=== PATIENT | female | born 1980 | race Caucasian/White ===

== ENCOUNTER 2020-05-21 20:13 | Emergency (ER) | payer OTHER, MEDICAID, SELFPAY ==
[2020-05-21 20:17] VITALS: BP 153/84; PULSE 93; RESP 18; TEMP 36.3; O2SAT 99
[2020-05-21] MEDS: DOXYCYCLINE HYCLATE 100 MG TABLET PO (20:22)
[2020-05-21] MEDS: LIDO 1%/SOD BICARB 8.4% (10ML) 10 ML SYRINGE INJ (20:23)
[2020-05-21] MEDS: TET,DIPH,PERTUSS(ACELL),VAC/PF 0.5 ML SYRINGE IM (20:31)
[2020-05-21] MEDS: HYDROCODONE/ACET 5/325 PREPACK 1 BOTTLE MISC (21:26)
--- NOTE | 2020-05-21 23:40 | ED_ITS ---
HPI - Skin/Abscess/Foreign Bdy General Chief complaint: Skin/Abscess/Foreign Body Stated complaint: states infection middle finger right hand Time Seen by Provider: 05/21/20 20:15 Source: patient Mode of arrival: Ambulatory Limitations: no limitations History of Present Illness HPI narrative: 39F former smoker with history of diabetes presents with the chief complaint of worsening pain, swelling, and redness of her right middle finger and she is concerned about infection. She denies any injury or systemic symptoms such as fever, chills, N/V. She states she got some redness over a week ago and pain seemed to get worse today. She did get some pus out earlier today. She denies any history of the same. MD complaint: abscess/boil Onset (ago): day(s) Tetanus up to date: yes Location: R hand Severity: moderate Quality: aching and constant Pain Consistency: constant Relieving factors: none Exacerbating factors: palpation and movement Context: none Treatments prior to arrival: bandages and attempted to drain pus at home Related Data Previous Rx's Medication Instructions Recorded doxycycline hyclate 100 mg PO BID #20 tab 05/21/20 Allergies Allergy/AdvReac Type Severity Reaction Status Date / Time No Known Drug Allergies Allergy Verified 05/21/20 20:19 Review of Systems Constitutional Constitutional: Denies chills, Denies fatigue, Denies fever(s), Denies frequent falls, Denies lethargy and Denies weakness Eyes Eyes: Denies change in vision, Denies eye discharge, Denies irritation and Denies loss of vision ENT Ears, Nose, Mouth, and Throat: Denies change in voice, Denies dizziness, Denies neck pain, Denies sore throat and Denies throat swelling Cardiovascular Cardiovascular: Denies chest pain, Denies irregular heart rhythm, Denies lightheadedness, Denies palpitations, Denies dyspnea, Denies dyspnea on exertion and Denies orthopnea Respiratory Respiratory: Denies cough, Denies dyspnea, Denies dyspnea on exertion and Denies wheezing Gastrointestinal Gastrointestinal: Denies abdominal pain, Denies change in bowel habits, Denies diarrhea, Denies nausea and Denies vomiting Musculoskeletal Musculoskeletal: Denies neck pain and Denies numbness Integumentary/Breasts Skin/Breast: Denies pruritus, Reports erythema, Denies rash, Reports skin pain, Reports skin swelling and Denies wounds Neurologic Neurologic: Denies behavioral changes, Denies confusion, Denies dizziness, Denies frequent falls, Denies loss of vision, Denies numbness and Denies weaknes s Psychiatric Psychiatric: Denies anxiety, Denies behavioral changes, Denies confusion, Denies depression, Denies homicidal ideation and Denies suicidal ideation Endocrine Endocrine: Denies fatigue, Denies flushing and Denies palpitations Hematologic/Lymphatic Hematologic/Lymphatic: Denies easy bruising Allergic/Immunologic Allergic/Immunologic: Denies urticaria, Denies throat swelling and Denies wheezing Patient History Social History Smoking Status: Current some day smoker Smoking Status: Current some day smoker Exam Narrative Exam Narrative: GEN: AOx3 and in mild distress EYES: Pupils are equal, round, and reactive to light and accommodation. Extraoccular muscles are intact bilaterally. There is no subconjunctival hemorrhage or exudate. CHEST: Lungs are clear to auscultation bilaterally and free of wheezes, rales, or rhonchi. Heart rate is regular rhythm, there are no murmurs, clicks, rubs, or gallops. There is no chest wall tenderness. ABD: Abdomen is soft and nontender. There is no guarding or rebound. Bowel sounds are normal in all 4 quadrants. There is no mass or organomegaly. EXT: Right middle finger with distal swelling and erythema and tenderness with fluctuance and lateral nail fold consistent with paronychia. There is some swelling of finger pad but it is soft and there is no fluctuance to suggest felon. No fusiform swelling, pain along flexor tendon or other findings consistent with tenosynovitis. Full painless ROM of all extremities with no loss of sensation or strength. SKIN: Warm, pink, and dry. No erythema or rash Initial Vital Signs Initial Vital Signs: Vital Signs Temperature 97.4 F L 05/21/20 20:17 Pulse Rate 93 H 05/21/20 20:17 Respiratory Rate 18 05/21/20 20:17 Blood Pressure 153/84 H 05/21/20 20:17 Pulse Oximetry 99 05/21/20 20:17 Procedures Abscess I/D I&D #1: Site: hand Side (if applicable): right Technique: incised with #11 blade Amount of fluid expressed (mL): 3 Irrigation: No Packing used?: none Complications: pain Nerve Block Nerve Block 1: Time out performed: Yes Local Anesthetic: lidocaine 1% Amount of anesthesia used (mL): 4 Side: right Nerve Blocks: digital Procedure Successful: Yes Patient Tolerated Procedure: Well Complications: none Course Orders Ordered: Discontinued Medications Hydrocodone Bitart/Acetaminophen (Hydrocodone/Acet 5/325 Prepack) 1 bottle MISC SEEINSTR ONE Stop: 05/21/20 21:24 Last Admin: 05/21/20 21:26 Dose: 1 bottle Documented by: BRENNA Diphtheria/Tetanus/Acell Pertussis (Tet,Diph,Pertuss(Acell),Vac/Pf 0.5 Ml Syringe) 0.5 ml IM .ONCE ONE Stop: 05/21/20 20:27 Last Admin: 05/21/20 20:31 Dose: 0.5 ml Documented by: BRENNA Doxycycline Hyclate (Doxycycline Hyclate 100 Mg Tablet) 100 mg PO NOW ONE Stop: 05/21/20 20:21 Last Admin: 05/21/20 20:22 Dose: 100 mg Documented by: MADDISON Lidocaine/Sodium Bicarbonate (Lido 1%/Sod Bicarb 8.4% (10ml) 10 Ml Syringe) 10 ml INJ NOW ONE Stop: 05/21/20 20:20 Last Admin: 05/21/20 20:23 Dose: 10 ml Documented by: MADDISON Vital Signs Vital signs: Vital Signs - 8 hr 05/21/20 20:17 Temperature 97.4 F L Pulse Rate 93 H Respiratory Rate 18 Blood Pressure 153/84 H Pulse Oximetry 99 MDM - Skin/Abscess/Foreign Bdy MDM Narrative Medical decision making narrative: Painful swollen, red finger with drainage. Swelling and fluctuance is limited to dorsal aspect of finger at nail fold. Felon and tenosynovitis considered but thought unlikely given exam. Extensive return precautions discussed with the patient, she demonstrates her understanding by her ability to verbalize them back. Questions answered to her apparent satisfaction. Discharge Plan Departure Patient Disposition: Home Clinical Impression: Paronychia Instructions: DI for Paronychia Activity Restrictions/Additional Instructions: *You have been diagnosed with [left middle finger paronychia with minimal surrounding cellulitis] *What to do: *Take medications as directed *Follow up with your primary care provider in 2-3 days, call for an appointment. Let them know you were seen in the Emergency Department and that we ask that you be seen in follow up *Return to ER if you should have any new, worsening or concerning symptoms, such as [increasing pain, fever, shaking chills, vomiting or other bothersome symptoms] Prescriptions: New doxycycline hyclate 100 mg tablet 100 mg PO BID Qty: 20 RF: 0
== END 2020-05-21 21:26 | disposition home or self-care (01) ==
PROVIDERS: Emergency Provider Emergency Medicine
DX: L03.011 Cellulitis of right finger (principal); Z23 Encounter for immunization
CPT/HCPCS: 10060; 64450; 90471; 99281; 99283; STOP; 90715

== ENCOUNTER 2020-06-09 16:40 | Emergency (ER) | payer OTHER, MEDICAID, SELFPAY ==
[2020-06-09 17:26] VITALS: BP 127/84; PULSE 90; RESP 18; TEMP 36.2; O2SAT 96; BMI 39.6
--- NOTE | 2020-06-09 18:02 | ED.EXTPRO ---
HPI - Extremity Problem General Chief complaint: Extremity Problem,Nontraumatic Stated complaint: infection in right middle finger Time Seen by Provider: 06/09/20 18:01 Source: patient Mode of arrival: Ambulatory Limitations: no limitations History of Present Illness HPI Narrative: 39F smoker with history of paronychia returns with recurrent symptoms. She was seen her on 05/21 under similar circumstances and had block, I/D and was placed on Doxycycline. She had what sounds like a total resolution of symptoms after completing her course of antibiotics, but symptoms have returned over the past week or so. She states she was able to drain a rather large amount of yellow pus from a swollen tender area at the nail fold on right middle finger yesterday. She has no systemic symptoms such as fever, chills nor nausea or vomiting. She has had no problems with range of motion. She is otherwise well and free of complaint. MD Complaint: extremity pain and extremity swelling Onset (ago): day(s) Pain Consistency: constant Location: right Related Data Previous Rx's Medication Instructions Recorded doxycycline hyclate 100 mg PO BID #20 tab 05/21/20 sulfamethoxazole-trimethoprim 1 tab PO BID 10 Days #20 tab 06/09/20 [Bactrim DS] Allergies Allergy/AdvReac Type Severity Reaction Status Date / Time No Known Drug Allergies Allergy Verified 06/09/20 17:26 Review of Systems Constitutional Constitutional: Denies chills, Denies fatigue, Denies fever(s), Denies frequent falls, Denies lethargy and Denies weakness Eyes Eyes: Denies change in vision, Denies eye discharge, Denies irritation and Denies loss of vision ENT Ears, Nose, Mouth, and Throat: Denies change in voice, Denies dizziness, Denies neck pain, Denies sore throat and Denies throat swelling Cardiovascular Cardiovascular: Denies chest pain, Denies irregular heart rhythm, Denies lightheadedness, Denies palpitations, Denies dyspnea, Denies dyspnea on exertion and Denies orthopnea Respiratory Respiratory: Denies cough, Denies dyspnea, Denies dyspnea on exertion and Denies wheezing Gastrointestinal Gastrointestinal: Denies abdominal pain, Denies change in bowel habits, Denies diarrhea, Denies nausea and Denies vomiting Musculoskeletal Musculoskeletal: Denies neck pain and Denies numbness Integumentary/Breasts Skin/Breast: Denies pruritus, Reports erythema, Denies rash, Reports skin pain, Reports skin swelling and Denies wounds Neurologic Neurologic: Denies behavioral changes, Denies confusion, Denies dizziness, Denies frequent falls, Denies loss of vision, Denies numbness and Denies weakness Psychiatric Psychiatric: Denies anxiety, Denies behavioral changes, Denies confusion, Denies depression, Denies homicidal ideation and Denies suicidal ideation Endocrine Endocrine: Denies fatigue, Denies flushing and Denies palpitations Hematologic/Lymphatic Hematologic/Lymphatic: Denies easy bruising Allergic/Immunologic Allergic/Immunologic: Denies urticaria, Denies throat swelling and Denies wheezing Patient History Social History Smoking Status: Current some day smoker Smoking Status: Current some day smoker tobacco type: cigarettes alcohol intake frequency: a few times a month Alcohol type: wine Substance Use Type: marijuana Exam Narrative Exam Narrative: GEN: AOx3 and in mild distress EYES: Pupils are equal, round, and reactive to light and accommodation. Extraoccular muscles are intact bilaterally. There is no subconjunctival hemorrhage or exudate. CHEST: Lungs are clear to auscultation bilaterally and free of wheezes, rales, or rhonchi. Heart rate is regular rhythm, there are no murmurs, clicks, rubs, or gallops. There is no chest wall tenderness. ABD: Abdomen is soft and nontender. There is no guarding or rebound. Bowel sounds are normal in all 4 quadrants. There is no mass or organomegaly. EXT: Right middle finger with swelling at nailfold c/w paronychia. No fluctuance. No ongoing drainage. No pain or swelling in finger pad to suggest felon. Full painless ROM of all extremities with no loss of sensation or strength. SKIN: Warm, pink, and dry. No erythema or rash Initial Vital Signs Initial Vital Signs: Vital Signs Temperature 97.1 F L 06/09/20 17:26 Pulse Rate 90 06/09/20 17:26 Respiratory Rate 18 06/09/20 17:26 Blood Pressure 127/84 06/09/20 17:26 Pulse Oximetry 96 06/09/20 17:26 Course Course Course Narrative: finger had just drained at home yesterday. No ongoing fluctuance or drainage. Discussion at bedside with patient regarding unlikelihood of effectiveness of a repeat I/D. Return precautions given, questions answered to her apparent satisfaction. Vital Signs Vital signs: Vital Signs - 8 hr 06/09/20 17:26 Temperature 97.1 F L Pulse Rate 90 Respiratory Rate 18 Blood Pressure 127/84 Pulse Oximetry 96 Discharge Plan Departure Patient Disposition: Home Clinical Impression: Paronychia of finger of right hand Instructions: DI for Paronychia Activity Restrictions/Additional Instructions: *You have been diagnosed with [recurrent paronychia right middle finger ] *What to do: *Take medications as directed. Your prescription was printed and you can take it to any local pharmacy. Please also do the warm soaks in epsom salts. *Follow up with your primary care provider in 2-3 days, call for an appointment. Let them know you were seen in the Emergency Department and that we ask that you be seen in follow up *Return to ER if you should have any new, worsening or concerning symptoms, such as [fever, chills, vomiting, increased redness or swelling of your finger, inability to move your finger due to pain and swelling, or other bothersome symptoms ] Prescriptions: New sulfamethoxazole-trimethoprim [Bactrim DS] 800-160 mg tablet 1 tab PO BID 10 Days Qty: 20 RF: 0 No Action doxycycline hyclate 100 mg tablet 100 mg PO BID Qty: 20 RF: 0
== END 2020-06-09 18:16 | disposition home or self-care (01) ==
PROVIDERS: Emergency Provider Emergency Medicine
DX: L03.011 Cellulitis of right finger (principal)
CPT/HCPCS: 99281